=== PATIENT | male | born 1995 | race American Indian/Alaskan Native ===

== ENCOUNTER 2016-10-20 08:36 | Emergency (ER) | payer SELFPAY ==
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
[2016-10-20 10:12] LABS: Bacteria,Urine 1+ /HPF (Negative); Mucus,Urine 3+ /HPF
[2016-10-20 10:23] LABS: Bilirubin,Urine NEG (Negative); Blood,Urine NEG (Negative); Ketones,Urine NEG (Negative); Leukocyte Esterase,Urine TR (Negative); Nitrite,Urine NEG (Negative); Protein,Urine <15 mg/dL mg/dL (Negative); Urobilinogen,Urine < 2.0 mg/dL (<2.0)
[2016-10-20 10:23] LABS: Eosinophils % (Auto) 3.2 % (0.0-4.3); Hematocrit 39.8 % (35.5-45.6); Hemoglobin 13.2 gm/dl (11.8-15.2); Mean Corpuscular HGB Conc 33 % (32-34); Mean Corpuscular Hemoglobin 29 pg (28-32); Mean Corpuscular Volume 86 fl (84-94); Platelet Count 255 K/mm3 (140-440); Red Blood Count 4.64 M/mm3 (3.65-5.03); Red Cell Distribution Width 14.2 % (13.2-15.2); White Blood Count 6.1 K/mm3 (4.5-11.0)
[2016-10-20 10:27] LABS: Alanine Aminotransferase 12 units/L (7-56); Albumin 4.8 g/dL (3.9-5); Albumin/Globulin Ratio 1.5 %; Alkaline Phosphatase 42 units/L (35-129); Anion Gap 16 mmol/L; BUN/Creatinine Ratio 15.55; Bilirubin,Total 0.3 mg/dL (0.1-1.2); Blood Urea Nitrogen 14 mg/dL (9-20); Calcium 9.5 mg/dL (8.4-10.2); Carbon Dioxide 27 mmol/L (22-30); Chloride 103.6 mmol/L (98-107); Glucose 93 mg/dL (75-100); Lipase 17 units/L (13-60); Potassium 3.8 mmol/L (3.6-5.0); Sodium 143 mmol/L (137-145); Total Protein 8.1 g/dL (6.3-8.2)
--- NOTE | 2016-10-20 16:44 | Emergency Department Report ---
ED Abdominal Pain HPI - General Chief Complaint: Abdominal Pain Stated Complaint: HEADACHE/STOMACH PAIN Time Seen by Provider: 10/20/16 09:21 Source: patient Mode of arrival: Ambulatory Limitations: No Limitations - History of Present Illness Initial Comments: Patient is a 21-year-old male with history of asthma presented today because of lower abdominal pain for the last 2 weeks. States that he went to an outside hospital where he had a CT of the chest which showed bronchitis and was given a prescription for clindamycin, albuterol, Medrol Dosepak, esomeprazole; states he lost the prescription. He states that his abdominal pain is lower abdomen abdomen and intermittent and not associated with any food. He has no nausea, vomiting, blood in the stool. Patient states that he does have slightly loose stool about 3 times a day. That his appetite is unchanged and he is able to eat like normal. Has been taking penicillin for a gingival infection for the last 3 weeks, he states that he takes the medication and consistently during this time. Addition the patient complains about some mild LOUIE. Denies any dysuria, hematuria, penile discharge, penile or genital rash. - Related Data Previous Rx's Medication Instructions Recorded Last Taken Type ALBUTEROL Inhaler [ProAir HFA 2 puff IH QID PRN #1 inhalation 10/20/16 Unknown Rx Inhaler] Acetaminophen [Acetaminophen TAB] 500 mg PO Q6HR #14 tablet 10/20/16 Unknown Rx Dicyclomine [Bentyl] 10 mg PO BID #14 capsule 10/20/16 Unknown Rx Nitrofurantoin [place]/M-Cryst 100 mg PO Q12HR #14 capsule 10/20/16 Unknown Rx [Macrobid CAP] Allergies Allergy/AdvReac Type Severity Reaction Status Date / Time No Known Allergies Allergy Verified 10/20/16 08:57 ED Review of Systems ROS: Stated complaint: HEADACHE/STOMACH PAIN Other details as noted in HPI Comment: All other systems reviewed and negative Constitutional: no symptoms reported Respiratory: denies: cough, shortness of breath Cardiovascular: denies: chest pain Genitourinary: denies: dysuria, frequency, hematuria, discharge, testicular pain Musculoskeletal: denies: back pain Skin: denies: rash Neurological: headache. denies: weakness, numbness, paresthesias, confusion, abnormal gait ED Past Medical Hx - Past Medical History Hx Asthma: Yes - Social History Smoking Status: Current Every Day Smoker - Medications Home Medications: Home Medications Medication Instructions Recorded Confirmed Last Taken Type ALBUTEROL Inhaler [ProAir HFA 2 puff IH QID PRN #1 inhalation 10/20/16 Unknown Rx Inhaler] Acetaminophen [Acetaminophen TAB] 500 mg PO Q6HR #14 tablet 10/20/16 Unknown Rx Dicyclomine [Bentyl] 10 mg PO BID #14 capsule 10/20/16 Unknown Rx Nitrofurantoin [place]/M-Cryst 100 mg PO Q12HR #14 capsule 10/20/16 Unknown Rx [Macrobid CAP] ED Physical Exam - General Limitations: No Limitations General appearance: alert, in no apparent distress - Head Head exam: Present: atraumatic - Eye Eye exam: Present: normal appearance - ENT ENT exam: Present: other (soft tissue overgrowth around the left posterior lower tooth, no tenderness) - Respiratory Respiratory exam: Present: normal lung sounds bilaterally. Absent: respiratory distress - Cardiovascular Cardiovascular Exam: Present: regular rate, normal rhythm - GI/Abdominal GI/Abdominal exam: Present: soft. Absent: distended, tenderness, guarding, rebound, rigid - exam: Present: normal inspection. Absent: testicular tenderness, urethral discharge External exam: Absent: lesions - Back Exam Back exam: Present: normal inspection - Psychiatric Psychiatric exam: Present: normal affect - Skin Skin exam: Present: intact ED Course Vital Signs 10/20/16 10/20/16 10/20/16 08:58 16:15 17:00 Temperature 98.4 F Pulse Rate 78 Respiratory 17 Rate Blood Pressure 124/84 114/70 O2 Sat by Pulse 100 100 100 Oximetry 10/20/16 17:46 Temperature Pulse Rate Respiratory 18 Rate Blood Pressure O2 Sat by Pulse 99 Oximetry ED Medical Decision Making - Lab Data Result diagrams: 10/20/16 09:51 10/20/16 09:51 - Medical Decision Making Vital Signs normal; labs and UA have been preordered and are negative All all for headache, Bentyl for abdominal pain. Patient is well-appearing and does not appear to be in any pain currently. Does not appear to have any medical emergency. Critical care attestation.: If time is entered above; I have spent that time in minutes in the direct care of this critically ill patient, excluding procedure time. ED Disposition Clinical Impression: Abdominal pain Qualifiers: Abdominal location: lower abdomen, unspecified Qualified Code(s): R10.30 - Lower abdominal pain, unspecified Disposition: DISCHARGED TO HOME OR SELFCARE Is pt being admited?: No Does the pt Need Aspirin: No Condition: Stable Instructions: Abdominal Pain (ED) Additional Instructions: Please follow up with a primary care doctor in the next 3-5 days. Please also make sure to follow up with a dentist in the next 1-2 weeks. Return to the emergency room for your pain significantly worsens or he develop any new symptoms. Prescriptions: Acetaminophen [Acetaminophen TAB] 500 mg PO Q6HR #14 tablet Dicyclomine [Bentyl] 10 mg PO BID #14 capsule Nitrofurantoin [place]/M-Cryst [Macrobid CAP] 100 mg PO Q12HR #14 capsule ALBUTEROL Inhaler [ProAir HFA Inhaler] 2 puff IH QID PRN #1 inhalation PRN Reason: Shortness Of Breath Referrals: [facility] [Outside] - 3-5 Days [facility] [Outside] - 3-5 Days [facility] [Outside] - 3-5 Days [facility]IMARY [facility], [Primary Care Provider] - 3-5 Days
[2016-10-20] MEDS ORDERED: TYLENOL PO ONE (16:48)
[2016-10-20] MEDS ORDERED: BENTYL IM ONE (16:48)
[2016-10-20 18:45] VITALS: BP 114/70
== END 2016-10-20 18:00 | disposition home or self-care (01) ==
LOC: ED 08:36
DX: R10.30 Lower abdominal pain, unspecified (principal); J45.909 Unspecified asthma, uncomplicated; F17.200 Nicotine dependence, unspecified, uncomplicated
CPT/HCPCS: 36415; 80053; 81001; 82150; 83690; 85025; 96372; 99283; J0500

== ENCOUNTER 2021-11-17 21:29 | Emergency (ER) | payer SELFPAY ==
[2021-11-18] MEDS ORDERED: HYDROcodone/ACETAMINOPHEN 10-325MG TAB PO ONE (01:38)
[2021-11-18] MEDS ORDERED: AMOXICILLIN 500 MG CAP PO ONE (02:08)
--- NOTE | 2021-11-18 02:10 | Emergency Department Report ---
ED ENT HPI - General Chief complaint: Dental/Oral Stated complaint: BAD TOOTH ACHE/EARACHE Time Seen by Provider: 11/18/21 01:04 Source: patient Mode of arrival: Ambulatory Limitations: No Limitations - History of Present Illness Initial comments: 36-year-old male is emerged from complaining of pain to the left lower dental area which is worse with eating drinking and palpation. Area is dull and throbbing and moderate in nature. MD complaint: tooth pain -: Gradual Location: tooth # Severity: mild, moderate Quality: aching, dull Consistency: constant Improves with: none Worsens with: eating Context- Dental: history of dental caries, poor dental care Associated Symptoms: toothache - Related Data Previous Rx's Medication Instructions Recorded Last Taken Type Nitrofurantoin [place]/M-Cryst 100 mg PO Q12HR #14 capsule 10/20/16 Unknown Rx [Macrobid CAP] RX: Acetaminophen [Acetaminophen 500 mg PO Q6HR #14 tablet 10/20/16 Unknown Rx TAB] RX: Albuterol Mdi (or & Nicu Only) 2 puff IH QID PRN #1 inhalation 10/20/16 Unknown Rx [ProAir HFA Inhaler] RX: Dicyclomine [Bentyl] 10 mg PO BID #14 capsule 10/20/16 Unknown Rx Ketorolac [Toradol] 10 mg PO Q6H PRN #15 tablet 11/18/21 Unknown Rx RX: Amoxicillin [Amoxicillin TAB] 875 mg PO BID #20 tablet 11/18/21 Unknown Rx RX: Chlorhexidine Mouthwash 15 ml MM BID #1 bottle 11/18/21 Unknown Rx [Peridex] RX: Lidocaine Viscous 2% 5 ml MM Q3H PRN #120 udc 11/18/21 Unknown Rx Allergies Allergy/AdvReac Type Severity Reaction Status Date / Time No Known Allergies Allergy Verified 10/20/16 08:57 ED Dental HPI - General Chief complaint: Dental/Oral Stated complaint: BAD TOOTH ACHE/EARACHE Time Seen by Provider: 11/18/21 01:04 Source: patient Mode of arrival: Ambulatory Limitations: No Limitations - Related Data Previous Rx's Medication Instructions Recorded Last Taken Type Nitrofurantoin [place]/M-Cryst 100 mg PO Q12HR #14 capsule 10/20/16 Unknown Rx [Macrobid CAP] RX: Acetaminophen [Acetaminophen 500 mg PO Q6HR #14 tablet 10/20/16 Unknown Rx TAB] RX: Albuterol Mdi (or & Nicu Only) 2 puff IH QID PRN #1 inhalation 10/20/16 Unknown Rx [ProAir HFA Inhaler] RX: Dicyclomine [Bentyl] 10 mg PO BID #14 capsule 10/20/16 Unknown Rx Ketorolac [Toradol] 10 mg PO Q6H PRN #15 tablet 11/18/21 Unknown Rx RX: Amoxicillin [Amoxicillin TAB] 875 mg PO BID #20 tablet 11/18/21 Unknown Rx RX: Chlorhexidine Mouthwash 15 ml MM BID #1 bottle 11/18/21 Unknown Rx [Peridex] RX: Lidocaine Viscous 2% 5 ml MM Q3H PRN #120 udc 11/18/21 Unknown Rx Allergies Allergy/AdvReac Type Severity Reaction Status Date / Time No Known Allergies Allergy Verified 10/20/16 08:57 ED Review of Systems ROS: Stated complaint: BAD TOOTH ACHE/EARACHE Other details as noted in HPI Comment: All other systems reviewed and negative ED Past Medical Hx - Past Medical History Hx Asthma: Yes - Social History Smoking Status: Current Every Day Smoker - Medications Home Medications: Home Medications Medication Instructions Recorded Confirmed Last Taken Type Nitrofurantoin [place]/M-Cryst 100 mg PO Q12HR #14 capsule 10/20/16 Unknown Rx [Macrobid CAP] RX: Acetaminophen [Acetaminophen 500 mg PO Q6HR #14 tablet 10/20/16 Unknown Rx TAB] RX: Albuterol Mdi (or & Nicu Only) 2 puff IH QID PRN #1 inhalation 10/20/16 Unknown Rx [ProAir HFA Inhaler] RX: Dicyclomine [Bentyl] 10 mg PO BID #14 capsule 10/20/16 Unknown Rx Ketorolac [Toradol] 10 mg PO Q6H PRN #15 tablet 11/18/21 Unknown Rx RX: Amoxicillin [Amoxicillin TAB] 875 mg PO BID #20 tablet 11/18/21 Unknown Rx RX: Chlorhexidine Mouthwash 15 ml MM BID #1 bottle 11/18/21 Unknown Rx [Peridex] RX: Lidocaine Viscous 2% 5 ml MM Q3H PRN #120 udc 11/18/21 Unknown Rx ED Physical Exam - General Limitations: No Limitations General appearance: alert, in no apparent distress - Head Head exam: Present: atraumatic, normocephalic - Eye Eye exam: Present: normal appearance, PERRL, EOMI - ENT ENT exam: Present: mucous membranes moist, other (Tenderness to the left lower dental region with severe erosion noted. Distal adjacent gingival erythema.) - Neck Neck exam: Present: normal inspection - Respiratory Respiratory exam: Present: normal lung sounds bilaterally. Absent: respiratory distress - Cardiovascular Cardiovascular Exam: Present: regular rate, normal rhythm. Absent: systolic murmur, diastolic murmur, rubs, gallop - GI/Abdominal GI/Abdominal exam: Present: soft, normal bowel sounds - Rectal Rectal exam: Present: deferred - Extremities Exam Extremities exam: Present: normal inspection - Back Exam Back exam: Present: normal inspection - Neurological Exam Neurological exam: Present: alert, oriented X3 - Psychiatric Psychiatric exam: Present: normal affect, normal mood - Skin Skin exam: Present: warm, dry, intact, normal color. Absent: rash ED Course Vital Signs 11/17/21 23:25 Temperature 98.7 F Pulse Rate 73 Respiratory 17 Rate Blood Pressure 140/85 [Right] O2 Sat by Pulse 100 Oximetry Critical care attestation.: If time is entered above; I have spent that time in minutes in the direct care of this critically ill patient, excluding procedure time. ED Disposition Clinical Impression: Infected dental caries, Gingivitis Disposition: 01 HOME / SELF CARE / HOMELESS Is pt being admited?: No Does the pt Need Aspirin: No Condition: Stable Instructions: Dental Abscess, Preventive Dental Care, Adult Prescriptions: RX: Amoxicillin [Amoxicillin TAB] 875 mg PO BID #20 tablet RX: Lidocaine Viscous 2% 5 ml MM Q3H PRN #120 udc PRN Reason: Pain, Moderate (4-6) RX: Chlorhexidine Mouthwash [Peridex] 15 ml MM BID #1 bottle Ketorolac [Toradol] 10 mg PO Q6H PRN #15 tablet PRN Reason: Pain Referrals: PRIMARY CARE,MD [Primary Care Provider] - 3-5 Days [facility] [Outside] - 3-5 Days
[2021-11-18 02:19] VITALS: BP 133/81
== END 2021-11-18 02:19 | disposition home or self-care (01) ==
LOC: EDBD → ED 21:29
DX: K02.9 Dental caries, unspecified (principal); K05.10 Chronic gingivitis, plaque induced; F17.200 Nicotine dependence, unspecified, uncomplicated; J45.909 Unspecified asthma, uncomplicated
CPT/HCPCS: 99282